=== PATIENT | male | born 1980 | race Caucasian/White ===

== ENCOUNTER 2020-10-03 22:11 | Emergency (ER) | payer OTHER ==
[~2020-10-03] VITALS: Ht 170.2 cm; Wt 88.5 kg
[~2020-10-03 22:11] MED LIST: FLOMAX0.4 MG PO; IBUPROFEN 800800 M1 PO; NORCO 5-325 TA1 EACH PO; ZOFRAN ODT4 MG PO
[2020-10-03] MEDS ORDERED: ACETAMINOPHEN-1 EAC2 PO (23:37)
[2020-10-03] MEDS ORDERED: PENICILLIN V P500 MG PO (23:37)
[2020-10-03] MEDS ORDERED: PERIDEX 0.12%473 M1 SWISH&SPIT (23:37)
[2020-10-03 23:42] VITALS: BP 141/70
== END 2020-10-03 23:43 | disposition home or self-care (01) ==
LOC: M.ERS 22:11
DX: K02.9 Dental caries, unspecified (principal); F17.210 Nicotine dependence, cigarettes, uncomplicated